=== PATIENT | male | born 1975 | race Caucasian/White ===

== ENCOUNTER → 2017-11-12 | Outpatient (CLI) | payer OTHER ==
[~2017-11-12] MED LIST: DIATRIZOATE MEGL/DIATRIZOA SOD 30 ML BTL PO ONE; IOPAMIDOL 370 MG/ML 200 ML INFUS..BTL INJ ONE; SODIUM CHLORIDE 0.9% 50ML 50 ML ONE
[2017-11-12 14:15] LABS: BLOOD UREA NITROGEN 11 mg/dL (7-26); BUN/CREATININE RATIO 13 (6-25); CREATININE, SERUM 0.83 mg/dL (0.72-1.25); EST GLOMERULAR FILTRATION RATE > 60 ML/MIN (60-)
--- NOTE | 2017-11-12 17:14 | Diagnostic Imaging Report ---
EXAM: CT Abdomen and Pelvis WITH contrast INDICATION: Severe acute lower abdominal pain and diarrhea for the past 20 4236 hours. COMPARISON: None. TECHNIQUE: Abdomen and pelvis were scanned utilizing a multidetector helical scanner from the lung base to the pubic symphysis after administration of IV contrast. Coronal and sagittal reformations were obtained. Routine protocol was performed. Scan was performed when during portal venous phase. IV CONTRAST: 100 cc Isovue 300 ORAL CONTRAST: Water RADIATION DOSE: Total DLP: 530.47 mGy*cm Estimated effective dose: (DLP x 0.015 x size factor) mSv COMPLICATIONS: There was extravasation of contrast into the right antecubital fossa and anterior inferior arm superior to it. It is estimated at approximately 70 cc of contrast extravasated into the soft tissues. Initial evaluation demonstrated 4+ pulses and normal capillary refill. Cold and warm compresses were alternated. Arterial pulses and capillary refill remain normal for about 1 hour observation. The patient was given instructions regarding contrast extravasation care as well as to report to emergency room if change occurred following discharge. He was discharged from the radiology department with verbal and written instructions. FINDINGS: LINES and TUBES: None. LOWER THORAX: Bibasilar dependent atelectasis. HEPATOBILIARY: Scattered calcified granulomata. No focal hepatic lesions. No biliary ductal dilation. GALLBLADDER: No radio-opaque stones or sludge. No wall thickening. SPLEEN: No splenomegaly. Scattered calcified granulomata. PANCREAS: No focal masses or ductal dilatation. ADRENALS: No adrenal nodules KIDNEYS/URETERS: Kidneys enhance symmetrically. No hydronephrosis. No cystic or solid mass lesions. No stones. GI TRACT: There is mild diffuse thickening of the distal/terminal ileum, associated with mild stranding of the surrounding fat, and prominent vasa recta (comb sign). Similar finding also is present ileal loops in the left hemiabdomen as seen on coronal image 57 of findings consistent with enteritis with differential diagnosis including infectious and inflammatory etiologies. Appendix is normal. There are a few tiny scattered descending sigmoid colon diverticula without diverticulitis. PELVIC ORGANS/BLADDER: Unremarkable. LYMPH NODES: No lymphadenopathy. VESSELS: Unremarkable. PERITONEUM / RETROPERITONEUM: Small volume perihepatic free fluid. Small volume of free fluid in the right lower quadrant and pelvis. BONES: Unremarkable. SOFT TISSUES: Small fat-containing left inguinal hernia. Tiny fat-containing right inguinal hernia. IMPRESSION: 1. Findings consistent with acute enteritis (small bowel); differential diagnosis includes infectious and inflammatory etiologies. Small volume of free fluid, however, no loculated fluid collections. 2. Intravenous contrast extravasation in the right arm. The patient was observed for about 1 hour and a half and discharged in stable condition with written and verbal instructions. Discussed with Alix with Dr. Tara wyatt, a phone number [phone], at approximately 4:30 PM on 11/12/17. Signed by: Dr. Ady Theodore M.D. on 11/12/2017 5:10 PM
--- NOTE | 2017-11-13 17:07 | Diagnostic Imaging Report ---
PROCEDURE:US GUIDANCE FOR VASCULAR ACCESS COMPARISON:None. INDICATIONS:Lack of IV access FINDINGS:Ultrasound evaluation of potential access sites was performed. After successfully identifying a patent vessel, US guidance was used to puncture the vein. A permanent recording was created for the patient record. CONCLUSION:Successful IV access by Ultrasound guidance. Blas Fernando M.D. Dictated by: Blas Fernando M.D. on 11/13/2017 at 17:12 Electronically approved by: Blas Fernando M.D. on 11/13/2017 at 17:12
== END ==
LOC: CT 13:31
PROVIDERS: ATTEND Family Medicine
DX: R10.30 Lower abdominal pain, unspecified (principal); R19.7 Diarrhea, unspecified; D72.89 Other specified disorders of white blood cells
CPT/HCPCS: 36415; 74177; 82565; 84520; Q9967; 76937

== ENCOUNTER 2022-10-15 10:21 | Inpatient (IN) | payer OTHER ==
[~2022-10-15] VITALS: Ht 180.3 cm; Wt 89.8 kg
[2022-10-15] MEDS ORDERED: ONDANSETRON HCL INJ 2MG/ML 2ML 2 MG/ML VIAL IV STA ×2 (10:38→13:45)
[2022-10-15] MEDS ORDERED: KETOROLAC TROMETHAMINE 30 MG/ML VIAL IV STA (10:38)
[2022-10-15] MEDS ORDERED: SODIUM CHLORIDE 0.9% 1000ML 1,000 ML IV STA (10:38)
[2022-10-15 10:46] LABS: BASOPHILS % 0.3 % (0.0-1.0); EOSINOPHILS # (AUTO) 0.1 (0.0-0.4); EOSINOPHILS % 0.4 % (0.0-6.0); HEMATOCRIT 42.7 % (38.2-49.6); HEMOGLOBIN 14.4 g/dL (14.0-18.0); LYMPHOCYTES # (AUTO) 2.1 (1.0-3.2); LYMPHOCYTES % 14.3 % (18.0-39.1); MEAN CORPUSCULAR HEMOGLOBIN 28.7 pg (28-32); MEAN CORPUSCULAR HGB CONC 33.7 g/dL (31-35); MEAN CORPUSCULAR VOLUME 85.1 fL (81-99); MONOCYTES # (AUTO) 1.1 (0.2-0.8); MONOCYTES % 7.5 % (4.4-11.3); NEUTROPHILS # (AUTO) 11.3 (2.1-6.9); NEUTROPHILS % 77.2 % (38.7-80.0); PLATELET COUNT 249 x10e3/uL (140-360); RED BLOOD COUNT 5.02 x10e6/uL (4.3-5.7); RED CELL DISTRIBUTION WIDTH 12.6 % (11.7-14.4)
[2022-10-15 10:50] LABS: CLARITY,URINE CLEAR (CLEAR); COLOR,URINE YELLOW (YELLOW)
[2022-10-15 10:51] LABS: KETONES,URINE NEGATIVE (NEGATIVE); LEUKOCYTE ESTERASE ,URINE NEGATIVE (NEGATIVE); NITRITE,URINE NEGATIVE (NEGATIVE); PROTEIN,URINE DIPSTICK NEGATIVE (NEGATIVE); URINE UROBILINOGEN 0.2 mg/dL (0.2 - 1)
[2022-10-15 11:02] LABS: INR 1.01; PARTIAL THROMBOPLASTIN TIME 29.3 seconds (23.8-35.5); PROTHROMBIN TIME 13.8 seconds (11.9-14.5)
[2022-10-15 11:04] LABS: ALBUMIN 4.1 g/dL (3.5-5.0); ALBUMIN/GLOBULIN RATIO 1.2 (0.8-2.0); ANION GAP 14.3 mmol/L (8-16); BACTERIA,URINE MODERATE /HPF; CALCIUM 9.5 mg/dL (8.4-10.2); CREATININE, SERUM 0.8 mg/dL (0.72-1.25); EPITHELIAL CELLS,URINE FEW /LPF; POTASSIUM 4.3 mmol/L (3.5-5.1); RBC,URINE 0-5 /HPF (0-5); WBC,URINE (MAN) 0-5 /HPF (0-5)
[2022-10-15] MEDS ORDERED: IOPAMIDOL 370 MG/ML 100 ML INFUS..BTL INJ ONE (11:24)
[2022-10-15] MEDS ORDERED: METRONIDAZOLE 500MG/NS 100ML 100 ML IV SCH (12:30)
[2022-10-15] MEDS ORDERED: HYDRALAZINE HCL 20 MG/ML VIAL IV PRN (12:45)
[2022-10-15] MEDS ORDERED: ONDANSETRON HCL INJ 2MG/ML 2ML 2 MG/ML VIAL IV PRN (12:45)
[2022-10-15] MEDS ORDERED: ACETAMINOPHEN 325 MG TAB PO PRN (13:30)
[2022-10-15] MEDS ORDERED: Morphine 4mg INJECTION 4 MG/ML INJ IV STA (13:45)
[2022-10-15] MEDS: DEXTROSE 5%/0.9% SOD CHL 1,000 ML IV SCH (14:07)
[2022-10-15 15:55] VITALS: BP 146/85; PULSE 63; RESP 20; TEMP 98.4; O2SAT 100
[2022-10-15] MEDS ORDERED: LISINOPRIL10 MG PO (16:52)
[2022-10-15] MEDS: Morphine 4mg INJECTION 4 MG/ML INJ IV PRN ×2 (18:20→22:55)
[2022-10-15 20:00] VITALS: BP 114/64; PULSE 69; RESP 17; TEMP 98.7; O2SAT 97
[2022-10-15] MEDS: METRONIDAZOLE 500MG/NS 100ML 100 ML IV SCH (21:03)
[2022-10-15 21:22] VITALS: BP 114/64; PULSE 69; RESP 17; TEMP 98.7; O2SAT 97
[2022-10-16 00:18] VITALS: BP 99/57; PULSE 85; RESP 18; TEMP 98.7; O2SAT 96
[2022-10-16] MEDS: DEXTROSE 5%/0.9% SOD CHL 1,000 ML IV SCH ×3 (01:40→13:42)
[2022-10-16] MEDS: METRONIDAZOLE 500MG/NS 100ML 100 ML IV SCH ×4 (02:34→19:45)
[2022-10-16] MEDS: Morphine 4mg INJECTION 4 MG/ML INJ IV PRN ×4 (02:43→18:01)
[2022-10-16 04:55] VITALS: BP 123/52; PULSE 59; RESP 16; TEMP 98.7; O2SAT 97
[2022-10-16 05:06] LABS: BASOPHILS % 0.2 % (0.0-1.0); EOSINOPHILS # (AUTO) 0.1 (0.0-0.4); EOSINOPHILS % 1.1 % (0.0-6.0); HEMATOCRIT 35.3 % (38.2-49.6); HEMOGLOBIN 11.6 g/dL (14.0-18.0); LYMPHOCYTES # (AUTO) 1.9 (1.0-3.2); LYMPHOCYTES % 17.5 % (18.0-39.1); MEAN CORPUSCULAR HEMOGLOBIN 28.6 pg (28-32); MEAN CORPUSCULAR HGB CONC 32.9 g/dL (31-35); MEAN CORPUSCULAR VOLUME 86.9 fL (81-99); MONOCYTES % 8.7 % (4.4-11.3); NEUTROPHILS % 72.2 % (38.7-80.0); PLATELET COUNT 181 x10e3/uL (140-360); RED BLOOD COUNT 4.06 x10e6/uL (4.3-5.7); RED CELL DISTRIBUTION WIDTH 12.7 % (11.7-14.4)
[2022-10-16 05:26] LABS: ANION GAP 10.9 mmol/L (8-16); CALCIUM 8.2 mg/dL (8.4-10.2); CREATININE, SERUM 0.75 mg/dL (0.72-1.25); POTASSIUM 3.9 mmol/L (3.5-5.1)
[2022-10-16 08:20] VITALS: BP 124/81; PULSE 65; RESP 17; TEMP 98.5; O2SAT 100
[2022-10-16 08:46] VITALS: BP 124/81; PULSE 65; RESP 17; TEMP 98.5; O2SAT 100
[2022-10-16] MEDS ORDERED: NEO OS (10:15)
[2022-10-16] MEDS ORDERED: DEX OS (10:15)
[2022-10-16] MEDS ORDERED: MAXITROL EYE O3.5 GM OS (10:15)
[2022-10-16] MEDS ORDERED: POLY OS (10:15)
[2022-10-16 12:33] VITALS: BP 154/83; PULSE 63; RESP 18; TEMP 98.5; O2SAT 97
[2022-10-16 16:43] VITALS: BP 129/83; PULSE 63; RESP 17; TEMP 99.5; O2SAT 99
[2022-10-17] VITALS: BP 118/80; PULSE 66; RESP 18; TEMP 97.5; O2SAT 99
[2022-10-17] MEDS: DEXTROSE 5%/0.9% SOD CHL 1,000 ML IV SCH ×4 (02:19→20:33)
[2022-10-17] MEDS: Morphine 4mg INJECTION 4 MG/ML INJ IV PRN ×2 (02:20→08:07)
[2022-10-17] MEDS: METRONIDAZOLE 500MG/NS 100ML 100 ML IV SCH ×4 (03:04→20:33)
[2022-10-17 05:15] VITALS: BP 106/62; PULSE 58; RESP 16; TEMP 97.9; O2SAT 99
[2022-10-17 05:36] LABS: BASOPHILS % 0.1 % (0.0-1.0); EOSINOPHILS # (AUTO) 0.1 (0.0-0.4); EOSINOPHILS % 1.4 % (0.0-6.0); HEMATOCRIT 32.9 % (38.2-49.6); HEMOGLOBIN 11.1 g/dL (14.0-18.0); LYMPHOCYTES % 20.9 % (18.0-39.1); MEAN CORPUSCULAR HEMOGLOBIN 28.8 pg (28-32); MEAN CORPUSCULAR HGB CONC 33.7 g/dL (31-35); MEAN CORPUSCULAR VOLUME 85.2 fL (81-99); MONOCYTES % 10.6 % (4.4-11.3); NEUTROPHILS # (AUTO) 6.4 (2.1-6.9); NEUTROPHILS % 66.7 % (38.7-80.0); PLATELET COUNT 170 x10e3/uL (140-360); RED BLOOD COUNT 3.86 x10e6/uL (4.3-5.7); RED CELL DISTRIBUTION WIDTH 12.3 % (11.7-14.4)
[2022-10-17 06:00] LABS: ANION GAP 9.5 mmol/L (8-16); CALCIUM 8.2 mg/dL (8.4-10.2); CREATININE, SERUM 0.71 mg/dL (0.72-1.25); POTASSIUM 3.5 mmol/L (3.5-5.1)
[2022-10-17 07:50] VITALS: BP 126/73; PULSE 59; RESP 18; TEMP 98; O2SAT 97
[2022-10-17] MEDS ORDERED: HYDROMORPHONE 1MG/1ML INJ IV PRN (10:45)
[2022-10-17] MEDS: KETOROLAC TROMETHAMINE 30 MG/ML VIAL IV PRN ×2 (11:02→20:32)
[2022-10-17 11:56] VITALS: BP 119/71; PULSE 63; RESP 18; TEMP 98.1; O2SAT 99
[2022-10-17 16:15] VITALS: BP 131/81; PULSE 56; RESP 20; TEMP 98.1; O2SAT 97
[2022-10-17 21:00] VITALS: BP 131/81; PULSE 56; RESP 20; TEMP 98.1; O2SAT 97
[2022-10-18] MEDS: METRONIDAZOLE 500MG/NS 100ML 100 ML IV SCH ×4 (02:27→20:25)
[2022-10-18] MEDS: DEXTROSE 5%/0.9% SOD CHL 1,000 ML IV SCH ×2 (05:54→15:03)
[2022-10-18 08:00] VITALS: BP 143/89; PULSE 60; RESP 21; TEMP 98; O2SAT 99
[2022-10-18] MEDS: KETOROLAC TROMETHAMINE 30 MG/ML VIAL IV PRN (09:24)
[2022-10-18 09:34] VITALS: BP 143/89; PULSE 60; RESP 21; TEMP 98; O2SAT 99
[2022-10-18 12:00] VITALS: BP 141/86; PULSE 64; RESP 20; TEMP 98.4; O2SAT 98
[2022-10-18] MEDS ORDERED: HYDROCODONE/APAP 7.5MG-325MG 1 EA TAB PO PRN (15:45)
[2022-10-18 16:10] VITALS: BP 126/75; PULSE 70; RESP 19; TEMP 98.4; O2SAT 98
[2022-10-18 20:47] VITALS: BP 147/98; PULSE 64; RESP 17; TEMP 98; O2SAT 99
[2022-10-19] VITALS: BP 152/94; PULSE 69; RESP 18; TEMP 98.5; O2SAT 96
[2022-10-19] MEDS: METRONIDAZOLE 500MG/NS 100ML 100 ML IV SCH ×3 (02:30→14:00)
[2022-10-19] MEDS: DEXTROSE 5%/0.9% SOD CHL 1,000 ML IV SCH (02:31)
[2022-10-19 04:00] VITALS: BP 139/89; PULSE 63; RESP 17; TEMP 98.3; O2SAT 99
[2022-10-19 07:09] LABS: BASOPHILS % 0.4 % (0.0-1.0); EOSINOPHILS # (AUTO) 0.1 (0.0-0.4); HEMATOCRIT 33.3 % (38.2-49.6); HEMOGLOBIN 11.5 g/dL (14.0-18.0); LYMPHOCYTES # (AUTO) 1.7 (1.0-3.2); LYMPHOCYTES % 20.1 % (18.0-39.1); MEAN CORPUSCULAR HEMOGLOBIN 28.9 pg (28-32); MEAN CORPUSCULAR HGB CONC 34.5 g/dL (31-35); MEAN CORPUSCULAR VOLUME 83.7 fL (81-99); MONOCYTES # (AUTO) 0.8 (0.2-0.8); MONOCYTES % 9.2 % (4.4-11.3); NEUTROPHILS # (AUTO) 5.8 (2.1-6.9); NEUTROPHILS % 69.1 % (38.7-80.0); PLATELET COUNT 194 x10e3/uL (140-360); RED BLOOD COUNT 3.98 x10e6/uL (4.3-5.7)
[2022-10-19 07:29] LABS: ANION GAP 12.6 mmol/L (8-16); CALCIUM 8.2 mg/dL (8.4-10.2); CREATININE, SERUM 0.71 mg/dL (0.72-1.25); POTASSIUM 3.6 mmol/L (3.5-5.1)
[2022-10-19 07:41] VITALS: BP 144/92; PULSE 64; RESP 19; TEMP 98.5; O2SAT 99
[2022-10-19 09:09] VITALS: BP 144/92; PULSE 64; RESP 19; TEMP 98.5; O2SAT 99
[2022-10-19 11:56] VITALS: BP 148/95; PULSE 66; RESP 16; TEMP 98.5; O2SAT 100
[2022-10-19] MEDS ORDERED: METRONIDAZOLE500 MG PO (12:42)
[2022-10-19] MEDS ORDERED: LEVOFLOXACIN500 MG PO (12:42)
[2022-10-19 15:58] VITALS: BP 142/88; PULSE 66; RESP 21; TEMP 98.9; O2SAT 98
== END 2022-10-19 17:17 | disposition home or self-care (01) | DRG 392 ==
LOC: ER 10:29 → ERHOLD 13:00 → MED/SURG 15:55
PROVIDERS: ADMIT Internal Medicine; ATTEND Internal Medicine
DX: K57.20 Diverticulitis of large intestine with perforation and abscess without bleeding (principal); I10 Essential (primary) hypertension; N20.0 Calculus of kidney; Z20.822 Contact with and (suspected) exposure to COVID-19; Z80.0 Family history of malignant neoplasm of digestive organs
CPT/HCPCS: 36415; 74177; 80048; 80053; 81001; 83690; 85025; 85610; 85730; 87086; 99285; J1885; J2270; J2405; J2543; J7030; J7042; Q9967